=== PATIENT | male | born 1930 | race Caucasian/White ===

== ENCOUNTER 2018-03-03 10:57 | Day surgery (SDC) | payer OTHER ==
[~2018-03-03] VITALS: Ht 170.2 cm; Wt 73.4 kg
[~2018-03-03 10:57] MED LIST: CALCIUM 600 +1 EA12 PO; ELIQUIS5 MG PO; LIPITOR10 MG PO; PRESERVISION A1 EAC2 PO; ULTRAM50 MG PO; VITAMIN C1000 MG PO
[2018-03-03] MEDS ORDERED: VITAMIN B122500 MCG PO (11:39)
[2018-03-03 11:46] VITALS: BP 138/74
[2018-03-03 15:50] VITALS: BP 141/78
[2018-03-03 16:41] VITALS: BP 138/75
== END 2018-03-03 16:43 | disposition home or self-care (01) ==
LOC: SDC 10:57
PROC: 0LQ80ZZ Repair Left Hand Tendon, Open Approach (ICD-10-PCS; principal; 2018-03-03)
DX: S56.424A Laceration of extensor muscle, fascia and tendon of left middle finger at forearm level, initial encounter (principal); W29.8XXA Contact with other powered hand tools and household machinery, initial encounter; Y93.H3 Activity, building and construction; E78.00 Pure hypercholesterolemia, unspecified; I71.4 Abdominal aortic aneurysm, without rupture; Z87.891 Personal history of nicotine dependence
CPT/HCPCS: J0690; J3010; S0020